=== PATIENT | male | born 2000 | race Two or more races ===

== ENCOUNTER → 2023-12-15 | Emergency (ER) | payer MEDICAID, OTHER ==
[~2023-12-15] VITALS: Ht 180.3 cm; Wt 81.8 kg
[2023-12-15 15:57] VITALS: BP 135/83; PULSE 106; RESP 18; O2SAT 97
== END | disposition left against medical advice (07) ==
LOC: EDBD 15:57 → ER 15:57
DX: F43.21 Adjustment disorder with depressed mood (principal); F10.10 Alcohol abuse, uncomplicated; F17.210 Nicotine dependence, cigarettes, uncomplicated; R45.851 Suicidal ideations